=== PATIENT | male | born 1995 | race Caucasian/White ===

== ENCOUNTER 2021-09-06 22:17 | Emergency (ER) | payer OTHER, BC, SELFPAY ==
[2021-09-06 22:18] VITALS: BP 151/93; PULSE 102; RESP 16; TEMP 36.9; O2SAT 99; BMI 29.0
--- NOTE | 2021-09-06 22:30 | EX.ED.UPPERE ---
HPI History of Present Illness Chief Complaint: Laceration Informant: patient Narrative Narrative: Patient with work and has cut be right dorsum of the hand overlying of the MCP of his left nondominant hand middle finger. Bleeding is controlled. No numbness tingling. Dialysis function. Last tetanus likely over 12 years ago. No other injury. [facility] Medical History no medical history Home Medications NK 09/06/21 [History Last Taken Unknown] Allergy/AdvReac Type Severity Reaction Status Date / Time No Known Allergies Allergy Verified 09/06/21 22:20 Social History Smoking Status: Never smoker ROS ROS ED Gastrointestinal Gastrointestinal: Denies nausea or vomiting Integumentary Reports other Details: Laceration as in history of present illness Neurologic Neurologic: Denies paresthesias or weakness Hematologic/Lymphatic Hematologic/Lymphatic: Denies easy bleeding or easy bruising EXAM Physical Exam Const Vital Signs: 09/06/21 22:18 Temperature 98.5 F Temperature Source Temporal Pulse Rate 102 H Respiratory Rate 16 Blood Pressure 151/93 H Blood Pressure Mean 112 Pulse Ox 99 Oxygen Delivery Method Room Air Positive well nourished General Appearance ED: NAD HEENT normocephalic and atraumatic Resp normal respiratory effort Extremity Extremity Narrative: See above. Patient has a 1.5 cm laceration that is on the dorsum of his left hand. This overlies the third MCP. No visible tendon. Range of motion including tendon function is intact. Sensation is intact. This will be explored in looked at more thoroughly after anesthesia and irrigation. There is no active bleeding at this time. Neuro moves all extremities, no focal motor deficits and no sensory deficits noted Sensorium / Orientation: alert Psych mental status grossly normal MDM MDM MDM Narrative Medical decision making narrative: Procedure: Suture laceration: Discussed risks benefits and options. The area was cleaned and scrubbed. Anesthetized with 1 and half cc of 1% lidocaine without epinephrine locally. It was further scrubbed and irrigated multiple times. I looked at it in a bloodless field through full range of motion. I do not see actually any injury to the tendon. I do not see that it even went down quite to the surface of his extensor tendon. It was sutured with 3 interrupted 4-0 Ethilon with good cosmesis. I observed each pass of the needle to avoid tendon. Finger was put through full range of motion after suturing. I discussed signs of infection reasons to return and timing of suture removal. Discharge Plan Triage Chief Complaint: Laceration ED Provider: Madhu Ramires Dx/Rx/DC Orders Clinical Impression: Laceration of hand, left, Sutured skin wound Instructions: ED Laceration, Hand: All Closures Prescriptions: No Action NK Primary Care Provider: Maria Teresa Encinas Referrals: Maria Teresa Encinas MD [Primary Care Provider] - 10-14 Days suture removal Disposition Disposition: Home, Self Care
[2021-09-06] MEDS: Diphth,Pertuss(Acell),Tet Vac 0.5 ML Vial IM (22:37)
[2021-09-06] MEDS: Lidocaine 1% (20 ml mdv) 20 ML Vial INFILT (22:39)
== END 2021-09-06 23:18 | disposition home or self-care (01) ==
LOC: ED 22:38
PROVIDERS: Emergency Provider Emergency Medicine; PCP Pediatrics; Visit Provider Emergency Medicine
DX: S61.412A Laceration without foreign body of left hand, initial encounter (principal); Z23 Encounter for immunization; X58.XXXA Exposure to other specified factors, initial encounter
CPT/HCPCS: 12001; 90471; 90715; 99283

== ENCOUNTER 2024-07-17 21:06 | Emergency (ER) | payer OTHER, SELFPAY ==
[2024-07-17 21:07] VITALS: BP 153/89; PULSE 97; RESP 18; TEMP 36.1; O2SAT 97
[2024-07-17] MEDS: Tetracaine 0.5% Ophthalmic Bottle 1 DRP LEFT EYE (21:25)
[2024-07-17] MEDS: Fluorescein 1 MG STRIP 1 STRIP LEFT EYE (21:25)
--- NOTE | 2024-07-17 21:28 | EDS_ITS ---
HPI History of Present Illness Chief Complaint: Eye Problem Detail of Chief Complaint: Foreign body sensation to right eye Informant: patient Narrative Narrative: Patient presents to the emergency department with complaint of a foreign body sensation to his right eye. 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 He was using a bird type tool to take off the edges from a bronze material. He was wearing safety glasses but feels that that a piece of debris possibly from the bur may have gone underneath his glasses and entered his right eye. He irrigated his eye at work with saline and the discomfort has lessened significantly. He is not sure if he was able to flush it out. He denies vision change currently. He denies eye pain. Patient has no medical history. PFSH PFS Home Medications ?Medication ?Instructions ?Recorded ?Last Taken ?Type NK 09/06/21 Unknown History Allergy/AdvReac Type Severity Reaction Status Date / Time No Known Allergies Allergy Verified 07/17/24 21:07 Social History (Updated 07/17/24 @ 21:20 by Mae Ugalde) housing: house Smoking Status: Never smoker ROS ROS ED Review of Systems ROS Unobtainable: other Constitutional Constitutional ED: Reports lethargy; Denies chills, fever(s), sweats or weight loss Eyes Eyes: Denies blurry vision, change in vision or diplopia ENT ENT ED: Reports other Details: Right eye foreign body ; Denies rhinorrhea or sore throat Cardiovascular Cardiovascular: Denies chest pain, orthopnea or racing heartbeat Respiratory/Chest Respiratory/Chest: Reports dyspnea and dyspnea on exertion; Denies cough, orthopnea or sputum Gastrointestinal Gastrointestinal: Denies abdominal pain, diarrhea, nausea or vomiting Genitourinary Genitourinary ED: Denies dysuria, hematuria or urinary frequency Musculoskeletal Musculoskeletal: Denies arthralgias, back pain, myalgias or neck pain Integumentary Denies abscess, Abrasions or rash Neurologic Neurologic: Denies headache(s) or weakness Psychiatric Psychiatric: Denies anxiety, depression or suicidal thoughts Endocrine Endocrinology: Denies polydipsia, polyphagia or polyuria Hematologic/Lymphatic Hematologic/Lymphatic: Denies easy bleeding, easy bruising or lymphadenopathy Allergic/Immunologic Allergic/Immunologic ED: Denies mouth swelling, tongue swelling or urticaria EXAM Physical Exam Const Vital Signs: 07/17/24 21:07 Temperature 97 F L Temperature Source Temporal Pulse Rate 97 Respiratory Rate 18 Blood Pressure 153/89 H Blood Pressure Mean 110 Pulse Ox 97 Oxygen Delivery Method Room Air Positive well nourished and well developed General Appearance ED: well developed and NAD HEENT Reports TM's clear and moist mucous membranes normocephalic and atraumatic; Negative for trauma or tenderness Tympanic Membrane ED: Yes TM's clear Eyes PERRL and EOMs intact bilaterally Eyes Narrative: Right eye-there is no erythema. No obvious foreign bodies noted within the cornea. Upper and lower eyelids were everted and there was no evidence of foreign body. I did stain his eye with fluorescein and there was no evidence of corneal abrasion on the cornea. General Eye ED: Negative for pale conjunctiva or scleral icterus Neck no lymphadenopathy, supple and no JVD General: Negative for tenderness Chest Wall inspection of chest normal and palpation of chest normal Chest: Negative for tenderness Resp normal respiratory effort and clear to auscultation bilaterally Effort and Inspection: Negative for respiratory distress or pain with movement Auscultation: Negative for rhonchi, wheezes or diminished lung sounds Cardio regular rate, regular rhythm, S1 normal heart sound, S2 normal heart sound and no murmurs Peripheral Pulses: pulses 2+ throughout GI normal to inspection, nondistended, normoactive bowel sounds, soft to palpation, non-tender, non-distended and no masses Back/Spine no CVA tenderness and no thoracic nor lumbar tenderness Extremity normal to inspection General Extremety ED: Negative for edema General Extremity: Negative for edema Neuro oriented x3, CN's II-XII intact bilaterally, no sensory deficits noted and gait normal Sensorium / Orientation: awake, alert, oriented to person, oriented to place and oriented to time Motor Exam: strength 5/5 throughout and strength abnormal Psych mental status grossly normal Skin no rashes or lesions noted and no wounds MDM MDM MDM Narrative Medical decision making narrative: Patient presents with foreign body sensation to right eye that is now lessened. Evaluation does not reveal any evidence of foreign body and there is no corneal abrasions. Clinically he is doing well. Will start on gentamicin ophthalmic drops. Will refer to ophthalmology for follow-up should he have ongoing pain or discomfort. Discharge Plan Triage Chief Complaint: Eye Problem ED Provider: Horacio Baires Dx/Rx/DC Orders Clinical Impression: Foreign body sensation, right eye Instructions: ED Corneal Foreign Body, Removed Prescriptions: No Action NK Primary Care Provider: Care Physician,No Primary Referrals: Lars Bauer MD [Med Staff - Active Staff] - 1-2 Days if not improving Care Physician,No Primary [Primary Care Provider] - Print Language: Icelandic Disposition Disposition: Home, Self Care
[2024-07-17] MEDS: Gentamicin Sulfate 1 OPTH.BTL 2 DRP RIGHT EYE (21:34)
[2024-07-17 21:54] VITALS: BP 130/78; PULSE 97; RESP 18; TEMP 36.1; O2SAT 97
== END 2024-07-17 21:54 | disposition home or self-care (01) ==
PROVIDERS: Emergency Provider Emergency Medicine; Visit Provider Emergency Medicine
DX: T15.91XA Foreign body on external eye, part unspecified, right eye, initial encounter (principal); X58.XXXA Exposure to other specified factors, initial encounter
CPT/HCPCS: 99283